=== PATIENT | male | born 1955 | race Caucasian/White ===

== ENCOUNTER 2021-04-05 06:34 | Observation (INO) | payer OTHER, MEDICARE ==
[2021-04-02 14:32] LABS: BASOPHILS % 0.4 % (0.0-1.0); EOSINOPHILS # (AUTO) 0.1 (0.0-0.4); EOSINOPHILS % 1.7 % (0.0-6.0); HEMATOCRIT 53.4 % (38.2-49.6); HEMOGLOBIN 16.5 g/dL (14.0-18.0); LYMPHOCYTES # (AUTO) 1.9 (1.0-3.2); MEAN CORPUSCULAR HEMOGLOBIN 25.7 pg (28-32); MEAN CORPUSCULAR HGB CONC 30.9 g/dL (31-35); MEAN CORPUSCULAR VOLUME 83.2 fL (81-99); MONOCYTES # (AUTO) 0.5 (0.2-0.8); MONOCYTES % 6.7 % (4.4-11.3); NEUTROPHILS # (AUTO) 4.6 (2.1-6.9); NEUTROPHILS % 63.9 % (38.7-80.0); PLATELET COUNT 225 x10e3/uL (140-360); RED BLOOD COUNT 6.42 x10e6/uL (4.3-5.7); RED CELL DISTRIBUTION WIDTH 15.1 % (11.7-14.4)
[2021-04-02 14:44] LABS: INR 0.99; PROTHROMBIN TIME 13.9 seconds (11.9-14.5)
[2021-04-02 14:45] LABS: PARTIAL THROMBOPLASTIN TIME 26.9 seconds (23.8-35.5)
[2021-04-02 14:47] LABS: ANION GAP 15.9 mmol/L (8-16); CALCIUM 9.1 mg/dL (8.4-10.2); CREATININE, SERUM 1.14 mg/dL (0.72-1.25); POTASSIUM 3.9 mmol/L (3.5-5.1)
[2021-04-05] VITALS (7 sets, daily range): BP systolic 111–128; BP diastolic 66–71
[~2021-04-05] VITALS: Ht 182.9 cm; Wt 119.3 kg
[~2021-04-05 06:34] MED LIST: ASPIR 8181 MG PO; ATORVASTATIN CA40 MG PO; CENTRUM SILVER1 EAC3 PO; COENZYME Q10 PO; FINASTERIDE5 MG PO; FLOMAX0.4 MG PO; INSULIN INJ; INVOKANA PO; JALYN 0.5-0.41 EACH PO; JANUVIA100 MG PO; JARDIANCE25 MG PO; LOSARTAN POTASS25 MG PO; MELOXICAM7.5 MG PO; NEXIUM40 MG PO; OMEPRAZOLE40 MG PO; PLAVIX75 MG PO; TOUJEO SOL300 UNIT/1 SC; TRAZODONE HCL50 MG PO; TRILIPIX135 MG PO; VIT C PO; [UNRECOGNIZED DRUG - OTHER] PO
[2021-04-05] MEDS ORDERED: SODIUM CHLORIDE 0.9% 50ML 50 ML ONE (06:43)
[2021-04-05] MEDS ORDERED: LIDOCAINE 1% W/EPINEPHRINE 20 ML VIAL ONE (07:05)
[2021-04-05] MEDS ORDERED: THROMBIN FOR SOLN 5,000 UNIT VIAL ONE (07:06)
[2021-04-05] MEDS ORDERED: Vancomycin IV 1 GM VIAL ONE (07:06)
[2021-04-05] MEDS ORDERED: HYDROCODON-ACE1 EA12 PO (09:22)
[2021-04-05] MEDS ORDERED: ZOLPIDEM TARTRATE 5 MG TAB PO PRN (09:30)
[2021-04-05] MEDS ORDERED: MAGNESIUM/ALUMINUM/SIMETHICONE 30 ML UDC PO PRN (09:30)
[2021-04-05] MEDS ORDERED: ACETAMINOPHEN 325 MG TAB PO PRN (09:30)
[2021-04-05] MEDS ORDERED: HYDROMORPHONE 2MG/ML 2 MG/ML ML IV PRN (09:30)
[2021-04-05] MEDS ORDERED: ONDANSETRON HCL INJ 2MG/ML 2ML 2 MG/ML VIAL IV PRN (09:30)
[2021-04-05] MEDS ORDERED: PROMETHAZINE HCL (IM) 25 MG/ML VIAL IM PRN (09:30)
[2021-04-05] MEDS ORDERED: LACTATED RINGER'S 1,000 ML IV SCH (09:30)
[2021-04-05] MEDS ORDERED: Morphine 10mg syringe 10 MG/ML INJ IM PRN (09:30)
[2021-04-05] MEDS ORDERED: MIDAZOLAM HCL 2 MG/2 ML VIAL ONE (12:08)
[2021-04-05] MEDS ORDERED: FENTANYL CITRATE/PF 100MCG/2 ML INJ ONE (12:08)
[2021-04-05] MEDS ORDERED: KETOROLAC TROMETHAMINE 30 MG/ML VIAL ONE (12:52)
[2021-04-05] MEDS ORDERED: POVIDONE IODINE 0.05% 0.05 % ML PO ONE (12:52)
[2021-04-05] MEDS ORDERED: PROPOFOL IV EMULSION 10 MG/ML 20 ML VIAL ONE (12:52)
[2021-04-05] MEDS ORDERED: ROCURONIUM BROMIDE 10 MG/ML 5ML VIAL IV ONE (12:52)
[2021-04-05] MEDS ORDERED: LIDOCAINE HCL 2% LOCAL INJ 5 ML SDV VIAL INJ ONE (12:52)
[2021-04-05] MEDS ORDERED: SEVOFLURANE INHAL SOLN 250 ML PEN BTL ONE (12:52)
[2021-04-05] MEDS ORDERED: ONDANSETRON HCL INJ 2MG/ML 2ML 2 MG/ML VIAL ONE (12:52)
[2021-04-05] MEDS ORDERED: DEXAMETHASONE SOD PHOS INJ 4 MG/ML SDV ONE (12:52)
[2021-04-05] MEDS: Cefazolin 1 GM in SODIUM CHLORIDE 0.9% 50ML 50 ML IV SCH (15:38)
[2021-04-05] MEDS: CARISOPRODOL 350 MG TAB PO PRN ×2 (15:39→20:33)
[2021-04-05] MEDS: OXYCODONE/ACETAMINOPHEN 5-325 1 EACH TABLET PO PRN ×2 (15:39→20:33)
[2021-04-06] VITALS: BP 106/70
[2021-04-06] MEDS: Cefazolin 1 GM in SODIUM CHLORIDE 0.9% 50ML 50 ML IV SCH ×2 (01:04→08:55)
[2021-04-06 04:00] VITALS: BP 117/75
[2021-04-06 07:53] VITALS: BP 114/90
[2021-04-06] MEDS ORDERED: TAMSULOSIN HCL 0.4 MG CAP PO SCH (09:00)
[2021-04-06] MEDS ORDERED: FINASTERIDE 5 MG TAB PO SCH (09:00)
[2021-04-06] MEDS ORDERED: ATORVASTATIN 40 MG TAB PO SCH (09:00)
[2021-04-06] MEDS ORDERED: UBIDECARENONE 100 MG PO SCH (09:00)
[2021-04-06] MEDS ORDERED: ASCORBIC ACID 500 MG TAB PO SCH (09:00)
[2021-04-06] MEDS ORDERED: LOSARTAN POTASSIUM 25 MG TAB PO SCH (09:00)
[2021-04-06] MEDS ORDERED: FENOFIBRIC ACID 135 MG PO SCH (09:00)
[2021-04-06] MEDS ORDERED: PANTOPRAZOLE SOD 40 MG TABEC PO SCH ×2 (09:00)
[2021-04-06] MEDS ORDERED: INSULIN GLARGINE HUM REC ANLOG 120 UNIT SQ SCH (09:00)
[2021-04-06] MEDS: OXYCODONE/ACETAMINOPHEN 5-325 1 EACH TABLET PO PRN (09:04)
[2021-04-06 09:06] VITALS: BP 114/90
[2021-04-06 11:35] VITALS: BP 131/90
[2021-04-06] MEDS ORDERED: ONDANSETRON HCL 4 MG ORAL DISINTEGRATING TAB PO PRN (13:15)
[2021-04-06] MEDS ORDERED: SODIUM CHLORIDE 0.9% 1000ML 1,000 ML ONE (16:19)
== END 2021-04-06 15:30 | disposition home or self-care (01) ==
LOC: OR 06:34 → PACU V 09:18 → MED/SURG 11:22
PROVIDERS: ADMIT Neurological Surgery; ATTEND Neurological Surgery
DX: M48.062 Spinal stenosis, lumbar region with neurogenic claudication (principal); M54.50 Low back pain, unspecified; R26.9 Unspecified abnormalities of gait and mobility; Z20.822 Contact with and (suspected) exposure to COVID-19; M19.90 Unspecified osteoarthritis, unspecified site; E11.9 Type 2 diabetes mellitus without complications; E78.5 Hyperlipidemia, unspecified; I10 Essential (primary) hypertension; Z01.818 Encounter for other preprocedural examination; G47.33 Obstructive sleep apnea (adult) (pediatric); I25.10 Atherosclerotic heart disease of native coronary artery without angina pectoris
CPT/HCPCS: 36415 ×3; 63047; 63048; 71046; 72020; 80048; 82948 ×2; 85025; 85610; 85730; 86850; 86900; 88304; 88311; 93005; G0378 ×2; J0690 ×2; J1100; J1170; J1885; J2001; J2250; J2405; J2550; J2704; J3010; J3370; J7030; J7121; U0002